=== PATIENT | female | born 1960 ===

== ENCOUNTER 2018-01-06 15:58 | Emergency (ER) | payer MEDICAID, OTHER ==
[2018-01-06 16:30] VITALS: TEMP 98; BMI 29.2
[2018-01-06] MEDS ORDERED: Sodium Chloride 0.9% 1,000 ML IV STA (17:26)
--- NOTE | 2018-01-06 17:41 | ED PDOC ---
Arrival/HPI - General Historian: Patient <Cruz Caraballo - Last Filed: 01/06/18 19:25> <Nicko Garcia - Last Filed: 01/06/18 19:51> <Alex Hernandez - Last Filed: 01/07/18 10:08> - General Chief Complaint: Dizziness/Lightheaded Time Seen by Provider: 01/06/18 16:28 - History of Present Illness Narrative History of Present Illness (Text): 01/06/18 17:30 57 year-old female with PMH of anxiety and diabetes (on a recently increased dose of insulin), presents to the ED after a low blood glucose reading at home. Patient states when she woke up this morning, she checked her blood sugar and it was 50. This was alarming for her so she called her neighbor who gave her some orange juice. They checked her blood sugar again and it was 169. She then took a nap, checked it again and it was 69. She states she ate lunch and then quickly checked it again and it was 64 which scared her. She did not come into the hospital for a few hours after checking her BS because she was scared. Patient states she feels completely fine and has been asymptomatic all day. Patient reports recent changes to her medications, including an increase of 30 to 45 units of insulin 3X daily. She has not taken any of her home medications today. Denies nausea/vomiting, blurry vision, headache, dizziness, fever/chills , weakness. (Cruz Caraballo) Past Medical History - Provider Review Nursing Documentation Reviewed: Yes - Infectious Disease Hx of Infectious Diseases: None - Cardiac Hx Cardiac Disorders: Yes Hx Hypertension: Yes - Pulmonary Hx Respiratory Disorders: Yes Other/Comment: R Chest noemi for lung puncture after fx ribs - Neurological Hx Neurological Disorder: Yes Hx Migraine: Yes Hx Seizures: Yes - HEENT Hx HEENT Disorder: Yes Other/Comment: glasses - Renal Hx Renal Disorder: No - Endocrine/Metabolic Hx Endocrine Disorders: Yes Hx Diabetes Mellitus Type 2: Yes - Hematological/Oncological Hx Blood Disorders: No - Integumentary Hx Dermatological Disorder: No - Musculoskeletal/Rheumatological Hx Musculoskeletal Disorders: Yes Hx Falls: Yes Other/Comment: Back injury that patient states resulted from seizure & left her in body cast 5 yrs ago - Gastrointestinal Hx Gastrointestinal Disorders: Yes Other/Comment: constipation - Genitourinary/Gynecological Hx Genitourinary Disorders: No - Psychiatric Hx Psychophysiologic Disorder: Yes Hx Depression: Yes Hx Substance Use: No (Questionable) - Past Surgical History Past Surgical History: No Previous - Surgical History Hx Cardiac Catheterization: No Hx Coronary Stent: No - Suicidal Assessment Feels Threatened In Home Enviroment: No <Cruz Caraballo - Last Filed: 01/06/18 19:25> Family/Social History - Physician Review Nursing Documentation Reviewed: Yes Family/Social History: Unknown Family HX Smoking Status: Current Some Days Smoker Hx Alcohol Use: No Hx Substance Use: No (Questionable) <Cruz Caraballo - Last Filed: 01/06/18 19:25> Allergies/Home Meds <Cruz Caraballo - Last Filed: 01/06/18 19:25> <Nicko Garcia - Last Filed: 01/06/18 19:51> <Alex Hernandez - Last Filed: 01/07/18 10:08> Allergies/Adverse Reactions: Allergies No Known Allergies Allergy (Verified 01/06/18 16:29) Home Medications: Home Meds Medication Instructions Recorded Confirmed Alprazolam [Xanax] 1 mg PO BID 08/24/12 10/12/15 Atropine/Diphenoxylate [Atropine 0 ml PO DAILY 08/24/12 10/12/15 Sulfate/Diphenoxylate HCl 5 Ml] Oxycodone Hydrochloride [Oxycodone] 30 mg PO QID 08/24/12 10/12/15 Sumatriptan Succinate [Imitrex] 100 mg PO DAILY 08/24/12 10/12/15 Furosemide [Lasix] 20 mg PO DAILY 10/12/15 10/12/15 Phenytoin Sodium Extended 100 mg PO DAILY 10/12/15 10/12/15 [Dilantin] metFORMIN [glucOPHAGE] 500 mg PO BID 10/12/15 10/12/15 Physical Exam Vital Signs Reviewed: Yes Temperature: Afebrile Blood Pressure: Normal Pulse: Tachycardic Respiratory Rate: Normal Appearance: Positive for: Well-Appearing, Non-Toxic, Comfortable Pain Distress: None Mental Status: Positive for: Alert and Oriented X 3 Finger Stick Blood Glucose: 169 - Systems Exam Head: Present: Atraumatic, Normocephalic Conjunctiva: Present: Normal Mouth: Present: Moist Mucous Membranes Nose (External): Present: Atraumatic Neck: Present: Normal Range of Motion. No: Meningeal Signs, JVD, Lymphadenopathy Respiratory/Chest: Present: Clear to Auscultation, Good Air Exchange. No: Respiratory Distress, Accessory Muscle Use Cardiovascular: Present: Normal S1, S2, Tachycardic (120s+). No: Murmurs Abdomen: No: Tenderness, Distention, Peritoneal Signs Upper Extremity: Present: Normal Inspection. No: Cyanosis, Edema Lower Extremity: Present: Normal Inspection. No: Edema Neurological: Present: GCS=15, CN II-XII Intact, Speech Normal Skin: Present: Warm, Dry, Normal Color. No: Rashes Lymphatic: No: Cervical Adenopathy Psychiatric: Present: Alert, Oriented x 3, Normal Insight, Normal Concentration <Cruz Caraballo - Last Filed: 01/06/18 19:25> Vital Signs Temp Pulse Resp BP Pulse Ox 01/06/18 19:25 104 H 18 100 01/06/18 19:03 100 H 16 126/75 95 01/06/18 17:27 121 H 16 129/90 95 01/06/18 16:28 98.0 F 122 H 18 112/74 95 Medical Decision Making <Cruz Caraballo - Last Filed: 01/06/18 19:25> <Nicko Garcia - Last Filed: 01/06/18 19:51> <Alex Hernandez - Last Filed: 01/07/18 10:08> ED Course and Treatment: 01/06/18 17:29 Patient denies all complaints. Patient's HR tachy at 120s. 1L bolus of NS. Will monitor for now. Labs 01/06/18 18:45 HR improving ~95bpm on monitor 01/06/18 19:25 Patient found to have elevated WBC and increasing HR to 107bpm again. Patient states she has a family emergency over in [facility] and needs to leave immediately. She requests to sign out against medical advice. Resident Rashmi explained all the risks associated with leaving AMA and that we would like to do additional testing to attempt to find origin of elevated HR and WBC. Patient was told of risks including but not limited to possible worsening infection, sepsis, stroke , myocardial infarction and/or . Patient states she would still like to leave and signed AMA paperwork. (Cruz Caraballo) 01/06/18 19:21 Patient Seen With Resident: In agreement with resident note. Patient was seen and evaluated with resident, came up with plan and treatment together.. (Nicko Garcia) 57 year old female with episodes of hypoglycemia with no complaints at this time. Agree with resident note. Patient found to be tachycardic with elevated WBC. She needed further workup but did not want to stay and decided to sign out AMA. Resident note explains in detail. (Alex Hernandez) - Lab Interpretations Lab Results: 01/06/18 18:00 01/06/18 18:00 Lab Results 01/06/18 18:00: Sodium 143, Potassium 3.6, Chloride 102, Carbon Dioxide 26, Anion Gap 18, BUN 18, Creatinine 0.6 L, Est GFR ( Amer) > 60, Est GFR ( Non-Af Amer) > 60, Random Glucose 138 H, Calcium 9.3, Magnesium 1.7, Total Bilirubin 0.6, AST 162 H, ALT 180 H, Alkaline Phosphatase 77, Total Protein 8.5 H, Albumin 4.3, Globulin 4.2, Albumin/Globulin Ratio 1.0 L 01/06/18 18:00: WBC 13.5 H D, RBC 4.83, Hgb 15.3, Hct 42.4, MCV 87.8, MCH 31.7, MCHC 36.1, RDW 12.8, Plt Count 154, MPV 12.2 H, Gran % 67.0, Lymph % (Auto) 25.1 , [place] % (Auto) 5.8, Eos % (Auto) 1.8, Baso % (Auto) 0.3, Gran # 9.05 H, Lymph # (Auto) 3.4, [place] # (Auto) 0.8 H, Eos # (Auto) 0.3, Baso # (Auto) 0.04 - Medication Orders Current Medication Orders: Discontinued Medications Sodium Chloride (Sodium Chloride 0.9%) 1,000 mls @ 999 mls/hr IV .Q1H1M STA Stop: 01/06/18 18:26 Last Admin: 01/06/18 17:37 Dose: 999 mls/hr eMAR Start Stop Document 01/06/18 17:37 JACOBO (Rec: 01/06/18 17:38 [id number] [id number]) Intravenous Solution Start Date 01/06/18 Start Time 17:38 End Date 01/06/18 End time 18:38 Total Infusion Time 60 - 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 / has examined the patient and agrees with the treatment plan. <Nicko Garcia - Last Filed: 01/06/18 19:51> Disposition/Present on Arrival - Present on Arrival Any Indicators Present on Arrival: Yes History of DVT/PE: No History of Uncontrolled Diabetes: Yes Urinary Catheter: No History of Decub. Ulcer: No History Surgical Site Infection Following: None - Disposition Have Diagnosis and Disposition been Completed?: No Disposition Time: 19:32 <Cruz Caraballo - Last Filed: 01/06/18 19:25> <Nicko Garcia - Last Filed: 01/06/18 19:51> - Present on Arrival Any Indicators Present on Arrival: Yes History of Uncontrolled Diabetes: Yes - Disposition Have Diagnosis and Disposition been Completed?: No Disposition Time: 19:25 <Alex Hernandez - Last Filed: 01/07/18 10:08> - Disposition Diagnosis: Tachycardia, Elevated WBC count Disposition: AGAINST MEDICAL ADVICE Condition: FAIR Referrals: Tr Flores MD [Primary Care Provider] - Follow up with primary Forms: [employer] ([place])
[2018-01-06 19:00] LABS: ALBUMIN 4.3 g/dL (3.0-4.8); BASO # 0.04 K/mm3 (0.0-2.0); BASO % 0.3 % (0.0-3.0); CALCIUM 9.3 mg/dL (8.4-10.5); EOS # 0.3 (0.0-0.7); EOS % 1.8 % (1.5-5.0); GFR AFRICAN-AMERICAN > 60; GFR NON-AFRICAN AMERICAN > 60; GRAN # 9.05 (1.4-6.5); HEMOGLOBIN 15.3 g/dL (12.0-16.0); LYMPH # 3.4 (1.2-3.4); LYMPH % 25.1 % (22.0-35.0); MEAN CELL VOLUME 87.8 fl (80.0-105.0); MEAN CORPUSCULAR HEMOGLOBIN 31.7 pg (25.0-35.0); MEAN CORPUSCULAR HGB CONC 36.1 g/dl (31.0-37.0); MEAN PLATELET VOLUME 12.2 fl (7.0-11.0); MONO # 0.8 (0.1-0.6); MONO % 5.8 % (1.0-6.0); RBC 4.83 10^6/uL (3.5-6.1); RED CELL DISTRIBUTION WIDTH 12.8 % (11.5-14.5); WHITE BLOOD COUNT 13.5 10^3/ul (4.5-11.0)
[2018-01-06 19:02] LABS: ALT/SGPT 180 U/L (7-56); AST/SGOT 162 U/L (14-36); BLOOD UREA NITROGEN 18 mg/dL (7-21)
[2018-01-06 19:04] VITALS: BP 126/75
[2018-01-06 20:38] VITALS: PULSE 104; RESP 18; O2SAT 100
== END 2018-01-06 19:25 | disposition left against medical advice (07) ==
LOC: ED 15:58
DX: R00.0 Tachycardia, unspecified (principal); D72.829 Elevated white blood cell count, unspecified; E11.9 Type 2 diabetes mellitus without complications; I10 Essential (primary) hypertension
CPT/HCPCS: 80053; 82948; 83735; 85025; 96360; 99284; J7030

== ENCOUNTER 2018-01-08 14:50 | Emergency (ER) | payer MEDICAID ==
[2018-01-08 14:59] VITALS: BMI 29.8
--- NOTE | 2018-01-08 15:46 | ED PDOC ---
Arrival/HPI - General Chief Complaint: Chest Pain Time Seen by Provider: 01/08/18 14:56 Historian: Patient - History of Present Illness Narrative History of Present Illness (Text): 01/08/18 15:36 57 year-old female with PMH of anxiety and diabetes, c/o intermittent sharp L sternal CP x 3 days, lasting for a few seconds, however today has been lasting for at least 5 mins. Reports no alleviating or exacerbating factors, chest pain is not affected with exertion. Patient states that she was here in this ER 2 days ago for low BS however left AMA due to a family emergency in [place], she adds that she was having the chest pain then, but failed to mention it. Otherwise denies any diaphoresis, SOB, dyspnea, palpitations, headache, dizziness, fever, URI, N/V, abdominal pain, back pain. Reports [place] and [place] [facility] [place] does not know if they were normal. 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 PMD Mark Past Medical History - Infectious Disease Hx of Infectious Diseases: None - Cardiac Hx Cardiac Disorders: Yes Hx Hypertension: Yes - Pulmonary Hx Respiratory Disorders: Yes Other/Comment: R Chest noemi for lung puncture after fx ribs - Neurological Hx Neurological Disorder: Yes Hx Migraine: Yes Hx Seizures: Yes - HEENT Hx HEENT Disorder: Yes Other/Comment: glasses - Renal Hx Renal Disorder: No - Endocrine/Metabolic Hx Endocrine Disorders: Yes Hx Diabetes Mellitus Type 2: Yes - Hematological/Oncological Hx Blood Disorders: No - Integumentary Hx Dermatological Disorder: No - Musculoskeletal/Rheumatological Hx Musculoskeletal Disorders: Yes Hx Falls: Yes Other/Comment: Back injury that patient states resulted from seizure & left her in body cast 5 yrs ago - Gastrointestinal Hx Gastrointestinal Disorders: Yes Other/Comment: constipation - Genitourinary/Gynecological Hx Genitourinary Disorders: No - Psychiatric Hx Psychophysiologic Disorder: Yes Hx Depression: Yes Hx Substance Use: No (Questionable) - Past Surgical History Past Surgical History: No Previous - Surgical History Hx Cardiac Catheterization: No Hx Coronary Stent: No - Suicidal Assessment Feels Threatened In Home Enviroment: No Family/Social History Family/Social History: CAD/CO Smoking Status: Current Some Days Smoker Hx Alcohol Use: No Hx Substance Use: No (Questionable) Allergies/Home Meds Allergies/Adverse Reactions: Allergies No Known Allergies Allergy (Verified 01/08/18 14:59) Home Medications: Home Meds Medication Instructions Recorded Confirmed Alprazolam [Xanax] 1 mg PO BID 08/24/12 01/08/18 Atropine/Diphenoxylate [Atropine 0 ml PO DAILY 08/24/12 01/08/18 Sulfate/Diphenoxylate HCl 5 Ml] Oxycodone Hydrochloride [Oxycodone] 30 mg PO QID 08/24/12 01/08/18 Sumatriptan Succinate [Imitrex] 100 mg PO DAILY 08/24/12 01/08/18 Furosemide [Lasix] 20 mg PO DAILY 10/12/15 01/08/18 Phenytoin Sodium Extended 100 mg PO DAILY 10/12/15 01/08/18 [Dilantin] metFORMIN [glucOPHAGE] 500 mg PO BID 10/12/15 01/08/18 Review of Systems - Review of Systems Constitutional: absent: Fatigue, Fevers Respiratory: absent: SOB, Cough Cardiovascular: Chest Pain. absent: Palpitations, Edema Gastrointestinal: Constipation. absent: Abdominal Pain, Stool Changes, Vomiting Genitourinary Female: absent: Dysuria, Frequency Musculoskeletal: absent: Arthralgias, Back Pain, Neck Pain Skin: absent: Rash, Pruritis Neurological: absent: Headache, Dizziness Physical Exam Vital Signs Temp Pulse Resp BP BP Pulse Ox 01/08/18 18:20 98.0 F 90 18 130/79 98 01/08/18 15:04 98 F 88 18 124/81 121/84 97 Temperature: Afebrile Blood Pressure: Normal Pulse: Regular Respiratory Rate: Normal Appearance: Positive for: Well-Appearing, Non-Toxic, Comfortable Pain Distress: None Mental Status: Positive for: Alert and Oriented X 3 - Systems Exam Head: Present: Atraumatic, Normocephalic Pupils: Present: PERRL Extroacular Muscles: Present: EOMI Conjunctiva: Present: Normal Mouth: Present: Moist Mucous Membranes Neck: Present: Normal Range of Motion Respiratory/Chest: Present: Clear to Auscultation, Good Air Exchange. No: Respiratory Distress, Accessory Muscle Use Cardiovascular: Present: Regular Rate and Rhythm, Normal S1, S2. No: Murmurs Abdomen: No: Tenderness, Distention, Peritoneal Signs Back: Present: Normal Inspection Upper Extremity: Present: Normal Inspection. No: Cyanosis, Edema Lower Extremity: Present: Normal Inspection. No: Edema Neurological: Present: GCS=15, CN II-XII Intact, Speech Normal, Motor Func Grossly Intact, Normal Sensory Function Skin: Present: Warm, Dry, Normal Color. No: Rashes Psychiatric: Present: Alert, Oriented x 3, Normal Insight, Normal Concentration Medical Decision Making ED Course and Treatment: 01/08/18 15:47 Plan : - Labs - IV - EKG - CXR - Asa PO / SL nitro - manager epic CXR : NAD, as read by PA EKG : NSR at 85 bpm, (-) acute ST changes, as read by RICKEY Labs reviewed : trop (-) 18:00 Considering patient's pmh of DM, strong FH of CAD, is a smoker, will keep patient for tele obs. Diagnostic results d/w the patient, she agrees with plan for tele obs. On re- evaluation, patient is resting in bed comfortably AAOx3. Reports no CP, SOB or palpitations at this time. Case d/w hospitalist Dr. Almanzar, agrees to plan for tele obs. 01/08/18 18:30 On reevaluation, patient reports improvement of symptoms, denies any chest pain , or SOB. On exam, patient remains awake alert and oriented 3 in no acute distress. Patient is now refusing tele observation for further care, evaluation or treatment for chest pain, r/o ACS. Patient informed of the reasons for the following and planned treatment, which patient understands, however still refuses. Patient informed of the risk and benefits of treatment. Informed that the risk could include worsening of current conditions, undiagnosed conditions, disability or even . Patient understands the following risk and the benefits of treatment. Patient has the capacity to make decisions and still refuses tele observation. Patient encouraged to return to the ER at any time and to follow up with pmd. - Lab Interpretations Lab Results: 01/08/18 16:51 01/08/18 16:51 Lab Results 01/08/18 16:51: PT 13.0 H, INR 1.14, APTT 32.9 01/08/18 16:51: Sodium 143, Potassium 4.5, Chloride 103, Carbon Dioxide 29, Anion Gap 15, BUN 13, Creatinine 0.5 L, Est GFR ( Amer) > 60, Est GFR ( Non-Af Amer) > 60, Random Glucose 125 H, Calcium 9.1, Magnesium 1.8, Total Bilirubin 0.6, AST 140 H, ALT 153 H, Alkaline Phosphatase 75, Lactate Dehydrogenase 522, Total Creatine Kinase 66, Troponin I < 0.01, NT-Pro-B Natriuret Pep 56.4, Total Protein 8.0, Albumin 4.0, Globulin 3.9, Albumin/ Globulin Ratio 1.0 L 01/08/18 16:51: Urine Color Yellow, Urine Appearance Sl cloudy, Urine pH 6.5, Ur Specific [place] 1.020, Urine Protein Negative, Urine Glucose (UA) 100 H, Urine Ketones Negative, Urine Blood Trace-intact H, Urine Nitrate Positive H, Urine Bilirubin Negative, Urine Urobilinogen 1.0 H, Ur Leukocyte Esterase Small H, Urine RBC 0 - 2, Urine WBC 2 - 5, Ur Epithelial Cells 4 - 5, Urine Bacteria Many 01/08/18 16:51: WBC 11.3 H, RBC 4.49, Hgb 14.2, Hct 40.5, MCV 90.2, MCH 31.6, MCHC 35.1, RDW 13.2, Plt Count 155, MPV 12.7 H, Gran % 49.3 L, Lymph % (Auto) 40.9 H, [place] % (Auto) 4.9, Eos % (Auto) 4.4, Baso % (Auto) 0.5, Gran # 5.58, Lymph # (Auto) 4.6 H, [place] # (Auto) 0.6, Eos # (Auto) 0.5, Baso # (Auto) 0.06 01/08/18 15:06: POC Glucose (mg/dL) 173 H - RAD Interpretation Radiology Orders: 01/08/18 15:13 CHEST PORTABLE [RAD] Stat - Medication Orders Current Medication Orders: Discontinued Medications Aspirin (Aspirin) 325 mg PO STAT STA Stop: 01/08/18 15:12 Last Admin: 01/08/18 16:40 Dose: 325 mg Enoxaparin Sodium (Lovenox) 40 mg SC DAILY NEOMÍ PRN Reason: Protocol Ceftriaxone Sodium (Rocephin 1 Gram Ivpb) 1 gm in 100 mls @ 200 mls/hr IVPB STAT STA PRN Reason: Protocol Stop: 01/08/18 17:58 Ibuprofen (Motrin Tab) 400 mg PO Q6H PRN PRN Reason: Pain, Mild (1-3) Insulin Human Regular (Humulin R Low) 0 units SC ACHS NOEMÍ PRN Reason: Protocol Nitroglycerin (Nitrostat Sl Tab) 0.4 mg SL STAT STA Stop: 01/08/18 15:34 Last Admin: 01/08/18 16:40 Dose: 0.4 mg Pantoprazole Sodium (Protonix Ec Tab) 40 mg PO 0600 NOEMÍ - 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 Disposition/Present on Arrival - Present on Arrival Any Indicators Present on Arrival: Yes History of DVT/PE: No History of Uncontrolled Diabetes: Yes Urinary Catheter: No History of Decub. Ulcer: No History Surgical Site Infection Following: None - Disposition Have Diagnosis and Disposition been Completed?: Yes Diagnosis: Chest pain Disposition: AGAINST MEDICAL ADVICE Disposition Time: 18:00 Patient Plan: Telemetry (observation) Condition: UNKNOWN Discharge Instructions (ExitCare): Leaving Against Medical Advice, Chest Pain ( ED) Additional Instructions: Thank you for letting us take care of you today. You were treated for chest pain. You are choosing to leave against medical advice. The emergency medical care you received today was directed at your acute symptoms. Return to the Emergency Department if your symptoms worsen, do not improve, or if you have any other problems. Please contact pmd in 2 days for re-evaluation and follow up. Bring any paperwork you were given at discharge with you along with any medications you are taking to your follow up visit. Our treatment cannot replace ongoing medical care by a primary care provider (PCP) outside of the emergency department. Thank you for allowing the [facility] team to be part of your care today. Referrals: Tr Flores MD [Primary Care Provider] - Follow up with primary Forms: [employer] ([place]e)
--- NOTE | 2018-01-08 15:55 | RAD ---
Date of service: 01/08/2018 HISTORY: Chest pain COMPARISON: 10/12/2015 FINDINGS: LUNGS: No active pulmonary disease. PLEURA: No significant pleural effusion identified, no pneumothorax apparent. CARDIOVASCULAR: No radiographic findings to suggest acute or significant cardiovascular disease. OSSEOUS STRUCTURES: No significant abnormalities. VISUALIZED UPPER ABDOMEN: Normal. OTHER FINDINGS: None. IMPRESSION: No active disease. No significant interval change compared to the prior examination(s).
[2018-01-08 16:45] VITALS: RESP 18
[2018-01-08 17:19] LABS: PH,URINE 6.5 (4.7-8.0); URINE BILIRUBIN NEGATIVE (NEGATIVE); URINE BLOOD TRACE-INTACT (NEGATIVE); URINE GLUCOSE (UA) 100 mg/dL (NEGATIVE); URINE LEUKOCYTE ESTERASE SMALL Leu/uL (NEGATIVE); URINE PROTEIN NEGATIVE mg/dL (<30 mg/dL)
[2018-01-08 17:22] LABS: BASO # 0.06 K/mm3 (0.0-2.0); BASO % 0.5 % (0.0-3.0); EOS # 0.5 (0.0-0.7); EOS % 4.4 % (1.5-5.0); GRAN # 5.58 (1.4-6.5); GRAN % 49.3 % (50.0-68.0); HEMOGLOBIN 14.2 g/dL (12.0-16.0); INR 1.14; LYMPH # 4.6 (1.2-3.4); LYMPH % 40.9 % (22.0-35.0); MEAN CELL VOLUME 90.2 fl (80.0-105.0); MEAN CORPUSCULAR HEMOGLOBIN 31.6 pg (25.0-35.0); MEAN CORPUSCULAR HGB CONC 35.1 g/dl (31.0-37.0); MEAN PLATELET VOLUME 12.7 fl (7.0-11.0); MONO # 0.6 (0.1-0.6); MONO % 4.9 % (1.0-6.0); PARTIAL THROMBOPLASTIN TIME 32.9 Seconds (25.1-36.5); RBC 4.49 10^6/uL (3.5-6.1); RED CELL DISTRIBUTION WIDTH 13.2 % (11.5-14.5); URINE APPEARANCE SL CLOUDY (CLEAR); URINE COLOR YELLOW (YELLOW); WHITE BLOOD COUNT 11.3 10^3/ul (4.5-11.0)
[2018-01-08 17:28] LABS: URINE BACTERIA MANY (NEG); URINE RBC 0 - 2 /hpf (0-2)
[2018-01-08] MEDS ORDERED: cefTRIAXone 1 gm 1 GM/100 ML BAG IVPB STA (17:29)
[2018-01-08 17:33] LABS: ALT/SGPT 153 U/L (7-56); AST/SGOT 140 U/L (14-36); BLOOD UREA NITROGEN 13 mg/dL (7-21); CALCIUM 9.1 mg/dL (8.4-10.5); GFR AFRICAN-AMERICAN > 60; GFR NON-AFRICAN AMERICAN > 60
[2018-01-08 17:35] LABS: B-TYPE NATRIURETIC PEPTIDE 56.4 pg/mL (0-450); TROPONIN I < 0.01 ng/mL
[2018-01-08 19:23] VITALS: BP 130/79; PULSE 90; TEMP 98; O2SAT 98
[2018-01-08] MEDS ORDERED: Insulin Reg-LOW-Coverage SC SCH (22:00)
[2018-01-09] MEDS ORDERED: Pantoprazole 40 mg EC Tab PO SCH (06:00)
[2018-01-09] MEDS ORDERED: Enoxaparin 40 mg Syringe SC SCH (10:00)
--- NOTE | 2018-01-09 15:15 | CARD ---
APPROVED REPORT Date of service: 01/08/2018 EKG Measurement Heart [id number] <Conclusion> Normal sinus rhythm Normal ECG
== END 2018-01-08 18:21 | disposition left against medical advice (07) ==
LOC: ED 14:50
DX: R07.9 Chest pain, unspecified (principal); E11.9 Type 2 diabetes mellitus without complications; I10 Essential (primary) hypertension